=== PATIENT | male | born 1980 | race Caucasian/White ===

== ENCOUNTER 2021-11-25 10:22 | Emergency (ER) | payer MEDICAID ==
[~2021-11-25] VITALS: Ht 167.6 cm; Wt 56.0 kg
[2021-11-25] MEDS ORDERED: SODIUM CHLORIDE 0.9% 1,000 ML IV ONE (11:00)
[2021-11-25 11:48] LABS: CHLORIDE 94 mEq/L (98-107)
[2021-11-25 11:51] LABS: BASOPHILS % 0.3 % (0.0-2.0); EOSINOPHILS % 0.1 % (0.0-5.0); HEMOGLOBIN. 12.8 g/dL (14.0-18.0); LYMPHOCYTES % 24.5 % (20.0-50.0); MEAN CORPUSCULAR HEMOGLOBIN 28.4 pg (28.0-32.0); MEAN CORPUSCULAR VOLUME 84.3 fL (80.0-94.0); MEAN PLATELET VOLUME 8.7 fl (7.4-10.4); MONOCYTES % 5.7 % (2.0-8.0); NEUTROPHILS % 69.4 % (40.0-76.0)
[2021-11-25 11:53] LABS: PLATELET 31 x1000/uL (130-400)
[2021-11-25 12:13] LABS: ETHANOL BLOOD 450 mg/dL
[2021-11-25 12:14] LABS: PLATELET ESTIMATE MARKEDLY DECREASED
[2021-11-25 12:39] LABS: INR 1.2; PROTHROMBIN TIME 12.4 sec (9.6-11.0)
[2021-11-25 21:36] VITALS: BP 133/84
== END 2021-11-25 21:40 | disposition home or self-care (01) ==
LOC: ER 10:22 → EDBD 10:22 → ER 21:40
DX: F10.129 Alcohol abuse with intoxication, unspecified (principal); Y90.8 Blood alcohol level of 240 mg/100 ml or more; D69.6 Thrombocytopenia, unspecified; R74.8 Abnormal levels of other serum enzymes
CPT/HCPCS: 36415; 70450; 80053; 80307; 80320; 80329; 85025; 85610; 96360; 96361; 99284; J7030; G0480